=== PATIENT | male | born 1990 | race Caucasian/White ===

== ENCOUNTER 2017-11-12 07:35 | Emergency (ER) | payer SELFPAY ==
[2017-11-12 07:40] VITALS: BP 121/74; PULSE 75; TEMP 98; BMI 25.0
--- NOTE | 2017-11-12 08:23 | PDOC ---
History of Present Illness - General Chief Complaint: Weakness Stated Complaint: WEAKNESS Time Seen by Provider: 11/12/17 08:10 - History of Present Illness Initial Comments: Patient is a 27 year old male, with no significant pmh, who presents to the emergency department complaining of persistent fatigue over the last 2-3 months. Pt states he feels fatigued in the evenings, more frequently in the last few weeks. Pt denies all other symptoms. Pt denies any sick contacts, changes in appetite, diet changes or recent travel. Pt has no hx of anemia, nutritional deficits, in-born errors of metabolism. Pt does not have a PCP he follows with currently. Pt also endorses weakness in his L leg when walking up stairs, but denies any gait abnormalities, FNDs or other neuro symptoms. The patient denies chest pain, shortness of breath, cough, headache or dizziness. Denies fever, chills, nausea, vomiting, diarrhea and constipation. Denies dysuria, frequency, urgency and hematuria. Allergies: None Past surgical history: None Social History: Social Drinker, 1 drink per week; No smoking, or drug use PMD: None 11/12/17 08:22 Past History - Past Medical History Allergies/Adverse Reactions: Allergies Allergy/AdvReac Type Severity Reaction Status Date / Time No Known Allergies Allergy Verified 11/12/17 07:37 Home Medications: Ambulatory Orders NK [No Known Home Medication] 11/12/17 COPD: No - Suicide/Smoking/Psychosocial Hx Smoking History: Never smoked Have you smoked in the past 12 months: No Information on smoking cessation initiated: No Hx Alcohol Use: Yes Drug/Substance Use Hx: No Substance Use Type: None Review of Systems - Review of Systems Comments:: GENERAL/CONSTITUTIONAL: No fever or chills. Generalized weakness over last few months. HEAD, EYES, EARS, NOSE AND THROAT: No change in vision. No ear pain or discharge. No sore throat. CARDIOVASCULAR: No chest pain or shortness of breath RESPIRATORY: No cough, wheezing, or hemoptysis. GASTROINTESTINAL: No nausea, vomiting, diarrhea or constipation. GENITOURINARY: No dysuria, frequency, or change in urination. MUSCULOSKELETAL: No joint or muscle swelling or pain. No neck or back pain. SKIN: No rash NEUROLOGIC: No headache, vertigo, loss of consciousness, or change in strength/ sensation. ENDOCRINE: No increased thirst. No abnormal weight change HEMATOLOGIC/LYMPHATIC: No anemia, easy bleeding, or history of blood clots. ALLERGIC/IMMUNOLOGIC: No hives or skin allergy. 11/12/17 08:22 *Physical Exam - Vital Signs Last Vital Signs Temp Pulse Resp BP Pulse Ox 98.0 F 75 18 121/74 100 11/12/17 07:37 11/12/17 07:37 11/12/17 07:37 11/12/17 07:37 11/12/17 07:55 - Physical Exam Comments: GENERAL: Young man, Awake, alert, and fully oriented, in no acute distress HEAD: No signs of trauma, normocephalic, atraumatic EYES: PERRLA, EOMI, sclera anicteric, conjunctiva clear ENT: Auricles normal inspection, hearing grossly normal, nares patent, oropharynx clear without exudates. Moist mucosa NECK: Normal ROM, supple, no lymphadenopathy, JVD, or masses LUNGS: No distress, speaks full sentences, clear to auscultation bilaterally HEART: Regular rate and rhythm, normal S1 and S2, no murmurs, rubs or gallops, peripheral pulses normal and equal bilaterally. ABDOMEN: Soft, nontender, normoactive bowel sounds. No guarding, no rebound. No masses EXTREMITIES : Normal inspection, Normal range of motion, no edema. No clubbing or cyanosis. NEUROLOGICAL: Cranial nerves II through XII grossly intact. Normal speech, normal gait, no focal sensorimotor deficits SKIN: Warm, Dry, normal turgor, no rashes or lesions noted 11/12/17 08:23 ED Treatment Course - LABORATORY CBC & Chemistry Diagram: 11/12/17 09:00 11/12/17 09:00 Medical Decision Making - Medical Decision Making Patient is a 27 year old male, with no significant pmh, who presents to the emergency department complaining of persistent fatigue over the last 2-3 months. Ddx includes anemia, vitamin deficiency, poor sleep hygiene, chronic fatigue, metabolic disorder, hypothyroidism, factitious disorder. Plan: -cbc, cmp, TSH, UA - Will discharge home with outpt referral for PCP 11/12/17 08:35 All labs normal. Pt with no complaints, VSS. Will discharge home with outpt f/u in resident clinic. All questions answered. 11/12/17 11:05 *DC/Admit/Observation/Transfer Diagnosis at time of Disposition: Fatigue Qualifiers: Fatigue type: chronic, unspecified Qualified Code(s): R53.82 - Chronic fatigue , unspecified - Discharge Dispostion Disposition: HOME Condition at time of disposition: Good Decision to Admit order: No - Referrals Referrals: Ronal Maciel MD [Staff Physician] - - Patient Instructions Additional Instructions: During your visit to the [facility] ED, you were evaluated for chronic fatigue. You received standard lab tests, which were relatively unremarkable. You are being discharged home with outpatient referral with Dr. Maciel for PCP. You are being provided a referral for follow-up with Dr. Maciel in our resident clinic for establishment of primary care coverage. Please call the number provided in this packet to schedule an appointment within one week. If you experience any of the following symptoms, please return to the ED: - Persistent fevers/chills >3 days - Any rectal bleeding or persistent blood in your stool - Changes in vision, numbness/weakness in any extremities, or persistent dizziness/loss of consciousness - Any new or concerning symptoms - Post Discharge Activity
--- NOTE | 2017-11-12 08:49 | PDOC ---
Attending Attestation - Resident Resident Name: Jersey Hensleyua - ED Attending Attestation I have performed the following: I have examined & evaluated the patient, The case was reviewed & discussed with the resident, I agree w/resident's findings & plan, Exceptions are as noted - HPI HPI: 11/12/17 08:39 27y M no pmhx present with complaints of worsening fatigue for the past 2-3 months, worse in the evenings. Good sleep hygiene. Denies fever/chills, cough, abd pain, cp, sob, drummond, diarrhea , melena, bpr, dysuria, weight loss. occasional ETOH (socially), denies smoking , drug use. on exam pt well appearing, in no distress abd soft nontender, no cva tenderness ext: no edema will obain blood work to r/o anemia, metabolic dernbagement - Physicial Exam PE: 11/12/17 10:40 see abve - Medical Decision Making 11/12/17 10:39 lbas unremarkable tsh neg will dc the pt with pmd fu retur nprecautions were discussed
[2017-11-12 09:50] LABS: BASO % 0.7 % (0-2.0); EOS % 0.7 % (0-4.5); HEMATOCRIT 43.2 % (35.4-49); HEMOGLOBIN 14.4 GM/dL (11.7-16.9); LYMPH % 47.5 % (8-40); MCH 27.7 pg (25.7-33.7); MCHC 33.3 g/dl (32.0-35.9); MEAN CELL VOLUME 83.4 fl (80-96); MEAN PLT VOLUME 9.1 fl (7.5-11.1); MONO % 6.9 % (3.8-10.2); NEUT % 44.2 % (42.8-82.8); PLATELET COUNT 174 K/MM3 (134-434); RBC 5.18 M/mm3 (4.00-5.60); RDW 14.3 % (11.9-15.9); WHITE BLOOD COUNT 6.6 K/mm3 (4.0-10.0)
[2017-11-12 09:54] LABS: URINE APPEARANCE CLEAR; URINE BILIRUBIN NEGATIVE (<2.0 mg/dL); URINE COLOR LTYELLOW; URINE GLUCOSE (UA) NEGATIVE (NEGATIVE); URINE KETONE NEGATIVE (NEGATIVE); URINE LEUK ESTERASE NEGATIVE (NEGATIVE); URINE NITRITE NEGATIVE (NEGATIVE); URINE PROTEIN NEGATIVE (NEGATIVE); URINE UROBILINOGEN NEGATIVE mg/dL (0.2-1.0)
[2017-11-12 10:20] LABS: ANION GAP 6 (8-16); BLOOD UREA NITROGEN 13 mg/dL (7-18); CALCIUM 8.7 mg/dL (8.5-10.1); CHLORIDE 103 mmol/L (98-107); CO2 31 mmol/L (21-32); CREATININE 0.8 mg/dL (0.7-1.3); GLUCOSE,RANDOM 86 mg/dL (74-106); POTASSIUM 4.1 mmol/L (3.5-5.1); SODIUM 140 mmol/L (136-145)
[2017-11-12 10:21] LABS: ALBUMIN 3.9 g/dl (3.4-5.0); BILIRUBIN,TOTAL 0.2 mg/dL (0.2-1.0); SGOT/AST 13 U/L (15-37); SGPT/ALT 26 U/L (12-78); TOT PROT 7.4 g/dl (6.4-8.2)
[2017-11-12 10:29] LABS: ALK PHOS 93 U/L (45-117)
== END 2017-11-12 11:04 | disposition home or self-care (01) ==
LOC: JER 07:35
DX: R53.82 Chronic fatigue, unspecified (principal)
CPT/HCPCS: 36415; 80053; 81003; 84443; 85025; 99282-25

== ENCOUNTER 2022-12-13 22:37 | Emergency (ER) | payer OTHER ==
[2022-12-13 22:54] VITALS: BP 147/98; PULSE 101; RESP 18; TEMP 98.2; BMI 29.5
[2022-12-13] MEDS ORDERED: FAMOTIDINE 20 MG/50 ML IVPB 20 MG/50 ML MG IVPB ONE ×2 (23:35→23:55)
[2022-12-13] MEDS ORDERED: ACETAMINOPHEN 1000 MG/100 ML BAG IVPB ONE (23:35)
[2022-12-13] MEDS ORDERED: ACETAMINOPHEN INJECTION 100 ML IVPB ONE (23:52)
[2022-12-14 00:31] LABS: BASO % 0.3 % (0-2.0); EOS % 0.2 % (0-4.5); HEMATOCRIT 43.4 % (35.4-49); HEMOGLOBIN 14.2 GM/dL (11.7-16.9); LYMPH % 11.5 % (8-40); MCHC 32.7 g/dl (32.0-35.9); MEAN CELL VOLUME 82.5 fl (80-96); MEAN PLT VOLUME 8.8 fl (7.5-11.1); MONO % 6.2 % (3.8-10.2); NEUT % 81.8 % (42.8-82.8); PLATELET COUNT 268 10^3/uL (134-434); RBC 5.26 M/mm3 (4.00-5.60); RDW 13.7 % (11.9-15.9); WHITE BLOOD COUNT 10.4 K/mm3 (4.0-10.0)
[2022-12-14 00:47] LABS: POTASSIUM 4.6 mmol/L (3.5-5.1)
[2022-12-14 00:49] LABS: CALCIUM 9.9 mg/dL (8.5-10.1)
[2022-12-14 00:50] LABS: BLOOD UREA NITROGEN 20.2 mg/dL (7-18)
[2022-12-14 00:53] LABS: CREATININE 1.2 mg/dL (0.55-1.3)
[2022-12-14 00:54] LABS: BILIRUBIN,TOTAL 0.7 mg/dL (0.2-1)
== END 2022-12-14 01:40 | disposition home or self-care (01) ==
LOC: JER 22:37
PROC: 3E033NZ Introduction of Analgesics, Hypnotics, Sedatives into Peripheral Vein, Percutaneous Approach (ICD-10-PCS; 2022-12-13)
PROC: 3E033GC Introduction of Other Therapeutic Substance into Peripheral Vein, Percutaneous Approach (ICD-10-PCS; principal; 2022-12-14)
DX: R10.13 Epigastric pain (principal); R11.2 Nausea with vomiting, unspecified; R61 Generalized hyperhidrosis
CPT/HCPCS: 36415; 80053; 83690; 84484; 85025; 93005; 93010; 99284-25